=== PATIENT | female | born 1990 | race Caucasian/White ===

== ENCOUNTER 2016-10-22 11:09 | Emergency (ER) | payer SELFPAY ==
[~2016-10-22] VITALS: Ht 167.6 cm; Wt 163.2 kg
[~2016-10-22 11:09] MED LIST: FLEXERIL10 MG PO; LORTAB 5/500 501 TAB PO; NO HOME MEDICATIONS; NORCO 325 MG-51 TAB PO
[2016-10-22 11:11] VITALS: TEMP 98.5
[2016-10-22] MEDS ORDERED: ALBUTEROL0.83 MG/ML IH (11:14)
[2016-10-22] MEDS ORDERED: ZYRTEC 10MG10 MG PO (11:14)
[2016-10-22] MEDS ORDERED: DEPO-PROVER150 MG/M1 IM (11:14)
[2016-10-22 12:22] VITALS: BP 134/91; PULSE 87
== END 2016-10-22 14:15 | disposition home or self-care (01) ==
LOC: COL.ER 11:09
DX: S63.91XA Sprain of unspecified part of right wrist and hand, initial encounter (principal); W01.198A Fall on same level from slipping, tripping and stumbling with subsequent striking against other object, initial encounter; Y92.414 Local residential or business street as the place of occurrence of the external cause; J45.909 Unspecified asthma, uncomplicated

== ENCOUNTER 2017-11-20 15:27 | Emergency (ER) | payer SELFPAY ==
[~2017-11-20] VITALS: Ht 167.6 cm; Wt 172.7 kg
[~2017-11-20 15:27] MED LIST changes: +ALBUTEROL0.83 MG/ML IH; +DEPO-PROVER150 MG/M1 IM; +ZYRTEC 10MG10 MG PO
[2017-11-20 15:44] VITALS: TEMP 99
[2017-11-20] MEDS ORDERED: FLONASEALLERGY NS (15:50)
[2017-11-20 16:53] VITALS: BP 167/100; PULSE 99
== END 2017-11-20 16:54 | disposition home or self-care (01) ==
LOC: COL.ER 15:27
DX: T78.3XXA Angioneurotic edema, initial encounter (principal); J45.909 Unspecified asthma, uncomplicated; Z90.89 Acquired absence of other organs; Z79.51 Long term (current) use of inhaled steroids
CPT/HCPCS: J8540

== ENCOUNTER 2018-08-22 12:43 | Outpatient (RCR) | payer OTHER ==
[~2018-08-22 12:43] MED LIST changes: +FLONASEALLERGY NS
== END 2018-11-18 15:50 | disposition home or self-care (01) ==
LOC: WSOH 12:43
DX: S46.812A Strain of other muscles, fascia and tendons at shoulder and upper arm level, left arm, initial encounter (principal); S16.1XXA Strain of muscle, fascia and tendon at neck level, initial encounter; S00.33XA Contusion of nose, initial encounter; S00.11XA Contusion of right eyelid and periocular area, initial encounter; Y04.2XXA Assault by strike against or bumped into by another person, initial encounter; Y93.F9 Activity, other caregiving; Y92.59 Other trade areas as the place of occurrence of the external cause; Y99.0 Civilian activity done for income or pay

== ENCOUNTER 2023-03-12 21:37 | Emergency (ER) | payer OTHER ==
[~2023-03-12] VITALS: Ht 167.6 cm; Wt 150.0 kg
[2023-03-12 21:43] VITALS: TEMP 98.3
[2023-03-12 22:17] LABS: BASO % 0.4 % (0.0-2.0); EOS % 0.5 % (0.0-4.0); GRAN # 4.3 K/mm3 (1.4-6.5); GRAN % 58.5 % (42.2-75.2); HEMATOCRIT 45.7 % (37.0-47.0); HEMOGLOBIN 15.9 g/dl (12.5-16.0); LYMPH # 2.1 K/mm3 (1.2-3.4); LYMPH % 28.4 % (20.0-51.0); MEAN CELL VOLUME 86 fl (80.0-100.0); MEAN CORPUSCULAR HEMOGLOBIN 30 pg (27-31); MEAN CORPUSCULAR HGB CONC 35 g/dl (33.0-37.0); MEAN PLATELET VOLUME 9.2 fl (7.4-10.4); MONO # 0.9 K/mm3 (0.1-0.6); MONO % 11.8 % (1.7-9.3); PLATELET COUNT 391 K/mm3 (130-400); RED BLOOD COUNT 5.31 M/mm3 (4.10-5.30); REDCELL DISTRIBUTION WIDTH-CV 12.8 % (11.5-14.5)
[2023-03-12 23:02] LABS: ALBUMIN 4.1 gm/dL (3.5-5.0); BILIRUBIN,TOTAL 0.5 mg/dL (0.2-1.2); C-REACTIVE PROTEIN 5.36 mg/dL (0.00-0.50); CALCIUM 11.9 mg/dL (8.4-10.2); CREATININE, serum 1.15 mg/dL (0.57-1.11); TOTAL PROTEIN 8.7 gm/dL (6.2-8.1)
[2023-03-13 00:15] LABS: COLLECTION METHOD CLEAN CATCH
[2023-03-13 00:19] LABS: MUCOUS Present (NOT PRESENT); URINE BACTERIA None Seen /hpf (NONE SEEN); URINE RBC 0-2 /hpf (0-2)
[2023-03-13 00:20] LABS: URINE APPEARANCE Hazy (CLEAR/HAZY); URINE COLOR Yellow (YELLOW); URINE GLUCOSE Negative (NEGATIVE); URINE PROTEIN(semi-quant) 1+ (NEGATIVE)
[2023-03-13 00:21] LABS: URINE BLOOD TRACE-INTACT (NEGATIVE); URINE KETONE TRACE (NEGATIVE); URINE NITRATE Negative (NEGATIVE); URINE UROBILINOGEN 0.2 E.U/dL (0.2-1.0)
[2023-03-13] MEDS ORDERED: ZOFRAN ODT4 MG PO (00:32)
[2023-03-13 00:54] VITALS: BP 164/94; PULSE 92
[2023-03-13 16:04] LABS: CLOSTRIDIUM DIFF A/B NEG
[2023-03-14] MEDS ORDERED: LEVAQUIN 5500 MG/TA1 PO (09:09)
== END 2023-03-13 00:54 | disposition home or self-care (01) ==
LOC: COL.ER 21:37
PROVIDERS: Nurse Practitioner Primary Care
DX: K52.9 Noninfective gastroenteritis and colitis, unspecified (principal)
CPT/HCPCS: J1790; J7030; Q9967